=== PATIENT | female | born 1970 | race African-American/Black ===

== ENCOUNTER 2021-05-26 02:38 | Emergency (ER) | payer OTHER, MEDICAID ==
[~2021-05-26] VITALS: Ht 160 cm; Wt 100.0 kg
[2021-05-26 03:00] VITALS: BP 135/90
[2021-05-26] MEDS ORDERED: PERCOCET 10/31 COMBO PO (03:12)
[2021-05-26] MEDS ORDERED: TIZANIDINE HYDRO6 MG (03:13)
[2021-05-26 03:32] LABS: HEMATOCRIT 38.9 % (37.0-47.0); HEMOGLOBIN 12.8 g/dl (12.0-16.0); IMMATURE GRANULOCYTES 0.3 % (0.0-5.0); MEAN CELL VOLUME 101.8 fL CALC (80.0-100.0); MEAN CORPUSCULAR HGB 33.5 pG CALC (26.0-32.0); MEAN CORPUSCULAR HGB CONC 32.9 g/dL CAL (32.0-36.0); NEUT# 3.27 thou/uL (2.00-7.15); RED BLOOD COUNT 3.82 mill/uL (4.20-5.60); RED CELL DISTRI WIDTH 13.7 % (11.5-15.5)
[2021-05-26 03:48] LABS: ALBUMIN 4.1 g/dL (3.2-5.0); ALKALINE PHOSPHATASE 92 u/l (38-126); ANION GAP 14 (6-22 (CALC)); BILIRUBIN, TOTAL 0.2 mg/dL (0.0-1.4); BUN 24 mg/dL (7-17); BUN/CREATININE RATIO 29 (12-20 (CALC)); CARBON DIOXIDE 20 mmol/l (22-30); CHLORIDE 114 mmol/l (95-108); CPK 106 u/l (30-165); CREATININE 0.8 mg/dL (0.5-1.0); GFR > 60 ML/MIN (>=60 (CALC)); GFR FOR AFR.AMER. > 60 ML/MIN (>=60 (CALC)); MAGNESIUM 1.9 mg/dL (1.6-2.3); POTASSIUM 3.6 mmol/l (3.5-5.1); SGOT/AST 30 u/l (14-36); SODIUM 145 mmol/l (137-146); TOTAL PROTEIN 7.8 g/dL (6.3-8.2)
[2021-05-26 03:56] LABS: MYOGLOBIN 26 ng/mL (0 - 62)
[2021-05-26 04:18] LABS: TSH, 3RD GENERATION 2.09 uIU/mL (0.47 - 4.68)
[2021-05-26] MEDS ORDERED: NEURONTIN300 MG PO (05:25)
[2021-05-26 05:35] VITALS: BP 135/90
== END 2021-05-26 05:47 | disposition home or self-care (01) | DRG 552 ==
LOC: ED 02:38
PROVIDERS: Family Medicine
DX: M51.17 Intervertebral disc disorders with radiculopathy, lumbosacral region (principal); C90.00 Multiple myeloma not having achieved remission; I10 Essential (primary) hypertension; F31.9 Bipolar disorder, unspecified; F17.210 Nicotine dependence, cigarettes, uncomplicated